=== PATIENT | female | born 1960 | race Hispanic/Latino ===

== ENCOUNTER 2020-09-28 17:37 | Inpatient (IN) | payer OTHER ==
[~2020-09-28 17:37] MED LIST: Iopamidol-370 76% 500 ML 1 ML ONE
[2020-09-28] MEDS ORDERED: Boostrix 0.5 ML (Tdap) VIAL ONE ×2 (18:10→18:20)
[2020-09-28] MEDS ORDERED: Fentanyl 100 MCG/2 ML VIAL ONE (18:10)
[2020-09-28] MEDS ORDERED: Ondansetron PF 4 MG/2 ML Vial ONE (18:10)
[2020-09-28] MEDS ORDERED: Acetaminophen 325 MG Suppository ONE (18:32)
[2020-09-28] MEDS ORDERED: Acetaminophen 650 MG Suppository ONE (18:33)
[2020-09-28] MEDS ORDERED: Morphine 4 MG/ML VIAL ONE ×2 (19:10→20:10)
[2020-09-28 19:11] LABS: #Eosinphils 0.2 thou/uL (0.0-0.7); #Lymphocytes 1.7 thou/uL (1.20-3.40); #Monocytes 0.5 thou/uL (0.11-0.59); #Neutrophils 4.2 thou/uL (1.40-6.50); %Basophils 0.3 % (0.0-1.0); %Eosinophils 2.4 % (0.0-10.0); %Lymphocytes 25.6 % (21.0-51.0); %Neutrophils 64.8 % (42.0-75.0); Hemoglobin 13.7 g/dL (12.0-16.0); Mean Corpuscular HGB CONC 34.7 g/dL (32.0-36.0); Mean Corpuscular Volume 95.1 fL (78.0-98.0); Mean Platelet Volume 7.9 fL (7.4-10.4); Platelet Count 189 thou/uL (130-400); Red Blood Cell (RBC) Count 4.14 mill/uL (4.20-5.40); White Blood Cell (WBC) Count 6.4 thou/uL (4.8-10.8)
[2020-09-28 19:25] LABS: PTT 27.8 sec (22.9-36.1); Prothrombin Time 13.6 sec (12.0-14.7)
[2020-09-28 19:34] LABS: ALT (SGPT) 41 U/L (8-55); AST (SGOT) 33 U/L (5-34); Albumin 3.9 g/dL (3.4-4.8); Alkaline Phosphatase 61 U/L (40-110); Anion Gap 12 mmol/L (10-20); BUN (Urea Nitrogen) 20 mg/dL (9.8-20.1); Bilirubin, Total 0.2 mg/dL (0.2-1.2); Calc. Creatinine Clearance 0 mL/min (70-130); Calcium 8.8 mg/dL (7.8-10.44); Carbon Dioxide 24 mmol/L (23-31); Chloride 106 mmol/L (98-107); Estimated GFR-MDRD 79; Globulin 2.9 g/dL (2.4-3.5); Glucose 99 mg/dL (80-115); Potassium 3.7 mmol/L (3.5-5.1); Protein, Total 6.8 g/dL (6.0-8.3); Sodium 138 mmol/L (136-145)
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
[2020-09-28] MEDS ORDERED: Ketorolac Tromethamine 30 MG/ML VIAL ONE (20:09)
[2020-09-28] MEDS ORDERED: Dextrose 50% Abboject 50 ML SYRINGE SLOW IVP PRN (20:10)
[2020-09-28] MEDS ORDERED: Dextrose 5% in Water 1,000 ML IV PRN (20:10)
[2020-09-28] MEDS ORDERED: Ondansetron ODT 4 MG TAB PO PRN (20:15)
[2020-09-28] MEDS ORDERED: Ondansetron PF 4 MG/2 ML Vial IVP PRN (20:15)
[2020-09-28] MEDS ORDERED: Promethazine HCl 25 MG/ML VIAL IM PRN (20:15)
[2020-09-28] MEDS ORDERED: Rib Fracture Protocol PO SCH (20:15)
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
[2020-09-28] MEDS ORDERED: Cyclobenzaprine 10 MG TAB PO PRN (21:00)
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
[2020-09-28] MEDS: Famotidine 20 MG TAB PO SCH (21:31)
[2020-09-28] MEDS: Ibuprofen 800 MG TAB PO SCH (21:31)
[2020-09-28] MEDS: Gabapentin 300 MG CAP PO SCH (21:31)
[2020-09-28] MEDS: Senokot S 8.6-50 MG TAB PO SCH (21:31)
[2020-09-28] MEDS: Lactated Ringer's 1,000 ML IV SCH (21:31)
[2020-09-28] MEDS: Morphine 2 MG/ML VIAL SLOW IVP PRN (21:37)
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
[2020-09-28 22:27] VITALS: BMI 26.7
[2020-09-29] MEDS: Acetaminophen 500 MG TAB PO SCH ×4 (05:20→20:37)
[2020-09-29] MEDS: Ibuprofen 800 MG TAB PO SCH ×4 (05:21→20:43)
[2020-09-29] MEDS: traMADol HCl 50 MG TAB PO SCH ×4 (05:21→20:38)
[2020-09-29 05:26] LABS: #Eosinphils 0.1 thou/uL (0.0-0.7); #Lymphocytes 1.6 thou/uL (1.20-3.40); #Monocytes 0.5 thou/uL (0.11-0.59); #Neutrophils 4.1 thou/uL (1.40-6.50); %Basophils 0.8 % (0.0-1.0); %Eosinophils 1.7 % (0.0-10.0); %Lymphocytes 25.5 % (21.0-51.0); %Monocytes 8.4 % (0.0-10.0); %Neutrophils 63.6 % (42.0-75.0); Hemoglobin 12.4 g/dL (12.0-16.0); Mean Corpuscular Hemoglobin 33.6 pg (27.0-31.0); Mean Corpuscular Volume 95.8 fL (78.0-98.0); Mean Platelet Volume 7.9 fL (7.4-10.4); Platelet Count 178 thou/uL (130-400); RBC Distribution Width 11.2 % (11.5-14.5); White Blood Cell (WBC) Count 6.4 thou/uL (4.8-10.8)
[2020-09-29 05:57] LABS: Anion Gap 10 mmol/L (10-20); BUN (Urea Nitrogen) 17 mg/dL (9.8-20.1); Calc. Creatinine Clearance 95 mL/min (70-130); Calcium 8.3 mg/dL (7.8-10.44); Carbon Dioxide 21 mmol/L (23-31); Chloride 108 mmol/L (98-107); Estimated GFR-MDRD 82; Glucose 102 mg/dL (80-115); Magnesium 1.9 mg/dL (1.6-2.6); Phosphorus 4.6 mg/dL (2.3-4.7); Potassium 4.2 mmol/L (3.5-5.1); Sodium 135 mmol/L (136-145)
[2020-09-29] MEDS: Senokot S 8.6-50 MG TAB PO SCH ×2 (07:57→20:44)
[2020-09-29] MEDS: Polyethylene Glycol 3350 17 GM Packet PO SCH (07:57)
[2020-09-29] MEDS: Gabapentin 300 MG CAP PO SCH ×3 (08:26→20:42)
[2020-09-29] MEDS: Famotidine 20 MG TAB PO SCH ×2 (08:26→20:44)
[2020-09-29] MEDS: Morphine 2 MG/ML VIAL SLOW IVP PRN (08:29)
[2020-09-29] MEDS: Lactated Ringer's 1,000 ML IV SCH (11:15)
[2020-09-29] MEDS ORDERED: Ketorolac Tromethamine 30 MG/ML VIAL ONE (11:45)
[2020-09-29] MEDS ORDERED: Dexamethasone 20 MG/5 ML VIAL ONE (11:45)
[2020-09-29] MEDS ORDERED: PROPOFOL 200 MG/20 ML VIAL ONE (11:45)
[2020-09-29] MEDS ORDERED: Ondansetron PF 4 MG/2 ML Vial ONE (11:45)
[2020-09-29] MEDS ORDERED: diphenhydrAMINE 50 MG/ML VIAL ONE (11:45)
[2020-09-29] MEDS ORDERED: Ropivacaine 0.5% HCl/PF (150 MG/30 ML VIAL) ONE ×2 (12:00→15:50)
[2020-09-29 12:57] LABS: SARS-CoV-2 MS2 Positive; SARS-CoV-2 N Gene Negative; SARS-CoV-2 S Gene Negative; SARS-CoV-2 by NAA Not Detected (NotDetected); SARS-CoV-2 orf1ab Negative
[2020-09-29] MEDS ORDERED: Fentanyl 100 MCG/2 ML VIAL ONE ×2 (15:48→16:26)
[2020-09-29] MEDS ORDERED: Midazolam HCl 2 mg/2 ml Vial ONE (15:48)
[2020-09-29] MEDS ORDERED: Ondansetron HCl/PF 4 MG/2 ML Vial IVP PRN (17:49)
--- NOTE | 2020-09-29 17:51 | RAD ---
Right wrist 2 views intraoperative fluoroscopy HISTORY: Fracture. FINDINGS: Intraoperative fluoroscopy was provided for internal fixation as performed by Dr. Dillard . Spot fluoroscopic images show compression volar plate and multiple screws transfixing the comminuted distal radial fracture, in anatomic alignment. Fluoroscopy time 6 seconds.
[2020-09-29] MEDS ORDERED: HYDROcodone/Acetaminophen 10/325 mg Tablet PO PRN ×2 (18:00)
[2020-09-29] MEDS ORDERED: Zolpidem Tartrate 5 MG TAB PO PRN (18:00)
[2020-09-29] MEDS ORDERED: Promethazine HCl 25 MG/ML VIAL IM PRN (18:00)
[2020-09-29] MEDS ORDERED: Ropivacaine 0.2% 550 ML 550 ML NERVE BLCK SCH (18:00)
[2020-09-29] MEDS ORDERED: traMADol HCl 50 MG TAB PO PRN ×2 (18:00)
[2020-09-29] MEDS ORDERED: Ondansetron PF 4 MG/2 ML Vial IVP PRN (18:00)
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
[2020-09-29] MEDS ORDERED: CEFAZOLIN 2 GM in Premix Bag 1 BAG IVPB SCH (20:03)
[2020-09-29] MEDS: Ketorolac Tromethamine 30 MG/ML VIAL IVP SCH (20:38)
[2020-09-29] MEDS ORDERED: FLU VACC QS2020-21(6MOS UP)/PF 60 MCG/0.5 ML SYRINGE IM ONE (21:00)
[2020-09-30] MEDS: traMADol HCl 50 MG TAB PO SCH ×5 (01:04→23:53)
[2020-09-30] MEDS: Acetaminophen 500 MG TAB PO SCH ×5 (01:05→23:53)
[2020-09-30] MEDS: Lactated Ringer's 1,000 ML IV SCH (01:06)
[2020-09-30] MEDS: Ketorolac Tromethamine 30 MG/ML VIAL IVP SCH ×2 (01:06→05:23)
[2020-09-30 05:21] LABS: #Lymphocytes 0.8 thou/uL (1.20-3.40); #Monocytes 0.3 thou/uL (0.11-0.59); #Neutrophils 5.1 thou/uL (1.40-6.50); %Basophils 0.2 % (0.0-1.0); %Eosinophils 0.1 % (0.0-10.0); %Monocytes 4.3 % (0.0-10.0); %Neutrophils 82.5 % (42.0-75.0); Hemoglobin 12.1 g/dL (12.0-16.0); Mean Corpuscular HGB CONC 34.2 g/dL (32.0-36.0); Mean Corpuscular Volume 96.3 fL (78.0-98.0); Mean Platelet Volume 7.5 fL (7.4-10.4); Platelet Count 166 thou/uL (130-400); Red Blood Cell (RBC) Count 3.68 mill/uL (4.20-5.40); White Blood Cell (WBC) Count 6.2 thou/uL (4.8-10.8)
[2020-09-30] MEDS: Ibuprofen 800 MG TAB PO SCH ×3 (05:24→21:24)
[2020-09-30 05:49] LABS: Phosphorus 3.2 mg/dL (2.3-4.7)
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
[2020-09-30] MEDS: Gabapentin 300 MG CAP PO SCH ×3 (08:25→21:24)
[2020-09-30] MEDS: Polyethylene Glycol 3350 17 GM Packet PO SCH (08:26)
[2020-09-30] MEDS: Senokot S 8.6-50 MG TAB PO SCH ×2 (08:26→21:24)
[2020-09-30] MEDS: Famotidine 20 MG TAB PO SCH ×2 (08:26→21:24)
[2020-09-30] MEDS ORDERED: traMADol HCl 50 MG TAB PO PRN (08:43)
[2020-10-01] MEDS: traMADol HCl 50 MG TAB PO SCH ×2 (06:07→11:57)
[2020-10-01] MEDS: Ibuprofen 800 MG TAB PO SCH ×2 (06:08→15:26)
[2020-10-01] MEDS: Acetaminophen 500 MG TAB PO SCH ×2 (06:08→11:57)
[2020-10-01] MEDS: Gabapentin 300 MG CAP PO SCH ×2 (08:32→15:26)
[2020-10-01] MEDS: Senokot S 8.6-50 MG TAB PO SCH (08:32)
[2020-10-01] MEDS: Famotidine 20 MG TAB PO SCH (08:32)
[2020-10-01] MEDS: Polyethylene Glycol 3350 17 GM Packet PO SCH (08:33)
[2020-10-01 11:53] VITALS: BP 131/79; TEMP 98.4
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
== END 2020-10-01 16:41 | disposition home or self-care (01) | DRG 511 ==
LOC: ERS 17:37 → SURG B 19:29
PROVIDERS: ADMIT Surgery; ATTEND Surgery
PROC: 0PSH04Z Reposition Right Radius with Internal Fixation Device, Open Approach (ICD-10-PCS; principal; 2020-09-29)
DX: S52.501A Unspecified fracture of the lower end of right radius, initial encounter for closed fracture (principal); S22.42XA Multiple fractures of ribs, left side, initial encounter for closed fracture; S32.039A Unspecified fracture of third lumbar vertebra, initial encounter for closed fracture; S32.049A Unspecified fracture of fourth lumbar vertebra, initial encounter for closed fracture; S52.601A Unspecified fracture of lower end of right ulna, initial encounter for closed fracture; Z90.49 Acquired absence of other specified parts of digestive tract; Z90.710 Acquired absence of both cervix and uterus; V89.2XXA Person injured in unspecified motor-vehicle accident, traffic, initial encounter; Z20.828 Contact with and (suspected) exposure to other viral communicable diseases
CPT/HCPCS: 29125; 36415; 71045; 71260; 74177; 76000; 80048; 80053; 83735; 84100; 85025; 85610; 85730; 87635; 90471; 90715; 93005; 94640; 96374; 96375; 96376; A4306; C1713; J0690; J1100; J1200; J1885; J2250; J2270; J2405; J2704; J2795; J3010; J7620; Q9967; U0003

== ENCOUNTER 2020-10-10 15:08 | Outpatient (CLI) | payer OTHER ==
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
== END 2020-10-10 15:09 | disposition home or self-care (01) ==
LOC: BICRAD 15:08
PROVIDERS: ATTEND Surgery
DX: S22.42XA Multiple fractures of ribs, left side, initial encounter for closed fracture (principal)
CPT/HCPCS: 71046

== ENCOUNTER 2023-08-04 18:14 | Observation (INO) | payer OTHER, SELFPAY ==
[~2023-08-04 18:14] MED LIST changes: -Iopamidol-370 76% 500 ML 1 ML ONE; +Iopamidol-370 76% 500 ML MDV (1 ML CHARGE) ONE
[2023-08-04 19:00] LABS: #Eosinphils 0.2 thou/uL (0.0-0.7); #Monocytes 0.5 thou/uL (0.11-0.59); #Neutrophils 2.5 thou/uL (1.40-6.50); %Basophils 0.2 % (0.0-1.0); %Eosinophils 3.9 % (0.0-10.0); %Lymphocytes 37.9 % (21.0-51.0); %Monocytes 9.7 % (0.0-10.0); %Neutrophils 48.1 % (42.0-75.0); Hematocrit 38.8 % (36.0-47.0); Hemoglobin 13.7 g/dL (12.0-16.0); Mean Corpuscular HGB CONC 35.3 g/dL (32.0-36.0); Mean Corpuscular Hemoglobin 32.9 pg (27.0-31.0); Mean Corpuscular Volume 93.3 fl (78.0-98.0); Mean Platelet Volume 10.1 fL (7.4-10.4); Platelet Count 229 10x3/uL (130-400); Red Blood Cell (RBC) Count 4.16 mill/uL (4.20-5.40); White Blood Cell (WBC) Count 5.2 10x3/uL (4.8-10.8)
[2023-08-04 19:28] LABS: ALT (SGPT) 43 U/L (8-55); AST (SGOT) 28 U/L (5-34); Albumin 4.1 g/dL (3.4-4.8); Alkaline Phosphatase 63 U/L (40-110); Anion Gap 11 mmol/L (10-20); BUN (Urea Nitrogen) 14 mg/dL (9.8-20.1); Bilirubin, Total 0.3 mg/dL (0.2-1.2); Calc. Creatinine Clearance 0 mL/min (70-130); Calcium 9.3 mg/dL (7.8-10.44); Carbon Dioxide 24 mmol/L (23-31); Chloride 108 mmol/L (98-107); Estimated GFR 89; Globulin 2.9 g/dL (2.4-3.5); Glucose 95 mg/dL (80-115); Lipase 66 U/L (8-78); Potassium 3.6 mmol/L (3.5-5.1); Sodium 139 mmol/L (136-145)
[2023-08-04 19:31] LABS: Troponin I Less than 0.010 ng/mL (< 0.028)
[2023-08-04] MEDS ORDERED: Aspirin Chewable 81 MG TAB ONE (22:45)
[2023-08-04 23:57] LABS: Troponin I Less than 0.010 ng/mL (< 0.028)
[2023-08-05] MEDS ORDERED: Acetaminophen 325 MG TAB PO PRN ×2 (00:30→00:33)
[2023-08-05] MEDS ORDERED: Ondansetron ODT 4 MG TAB SL PRN (00:30)
[2023-08-05] MEDS ORDERED: Ondansetron PF 4 MG/2 ML Vial IVP PRN (00:30)
[2023-08-05 00:44] VITALS: BMI 27.2
[2023-08-05 03:07] LABS: Troponin I Less than 0.010 ng/mL (< 0.028)
[2023-08-05 05:54] LABS: Troponin I Less than 0.010 ng/mL (< 0.028)
[2023-08-05] MEDS ORDERED: Acetaminophen 500 MG TAB PO PRN (07:33)
[2023-08-05] MEDS ORDERED: Regadenoson 0.4 MG/5 ML SYRINGE ONE (12:57)
[2023-08-05 15:38] VITALS: BP 129/77; TEMP 97.9
== END 2023-08-05 16:10 | disposition home or self-care (01) ==
LOC: ERS 18:14 → 2SE 23:34
PROVIDERS: ADMIT Family Medicine; ATTEND Family Medicine
DX: R07.9 Chest pain, unspecified (principal); R00.1 Bradycardia, unspecified; K76.0 Fatty (change of) liver, not elsewhere classified; F17.210 Nicotine dependence, cigarettes, uncomplicated; E27.9 Disorder of adrenal gland, unspecified
CPT/HCPCS: 36415; 71045; 74177; 78452; 80053; 83690; 84443; 84484; 85025; 93005; 93017; 96372; A9500; G0378; J1650; J2785; Q9967

== ENCOUNTER 2023-12-02 16:36 | Outpatient (CLI) | payer OTHER | END 2023-12-02 16:37 | disposition home or self-care (01) | LOC: RAD 16:36 | PROVIDERS: ATTEND Family Medicine | DX: R05.9 Cough, unspecified (principal) | CPT/HCPCS: 71046 ==

== ENCOUNTER 2024-09-23 09:00 | Outpatient (CLI) | payer OTHER | END 2024-09-23 09:01 | disposition home or self-care (01) | LOC: ULT 09:00 | PROVIDERS: ATTEND Physician Assistant Medical | DX: Z12.11 Encounter for screening for malignant neoplasm of colon (principal); B18.2 Chronic viral hepatitis C; K74.60 Unspecified cirrhosis of liver; R13.10 Dysphagia, unspecified; K76.9 Liver disease, unspecified | CPT/HCPCS: 76705 ==